=== PATIENT | female | born 2000 | race Caucasian/White ===

== ENCOUNTER 2025-04-07 11:32 | Emergency (ER) | payer OTHER, SELFPAY ==
[2025-04-07 11:38] VITALS: BP 112/74
--- NOTE | 2025-04-07 11:59 | ED.MUSCINJ ---
HPI-Injury
General
Chief Complaint: Musculo-Skeletal Complaint
Source: patient
Exam Limitations: none
Time Seen by Provider: 04/07/25 11:46
History of Present Illness-Injury
Initial Injury comments:
25-year-old female otherwise healthy presents complaining of left foot pain. She states she is training for marathon and ran 18 miles yesterday. Since then she has had pain and bruising to the lateral aspect of the foot and ankle. It is worse
with certain motions. She denies hearing a snap or pop. No significant injury that she knows of otherwise. No fevers.
Past History
Past History
ED Past Medical History: None
Social History
Tobacco: Non-smoker
Alcohol: None
Drug: None
Personal: Single
Living: with family
Phy Exam
Physical Exam
Physical Exam:
General: Well-appearing female no acute respiratory distress
Musculoskeletal exam: Left ankle swollen and tender with ecchymosis noted inferior to the distal fibula and over the proximal lateral foot. Her ankle stable to a drawer test she has great function upon resisted eversion and inversion
Vascular: 2 DP pulse left foot
Injury Course
Orders/Labs/Results
Orders:
Orders
04/07/25 11:43
Foot, Left 3 View [CR Foot - Left Min 3 Views] Urgent
Comment:
Reason For Exam: injury
MDM/Problems Addressed
Differential Diagnosis Includes:
Left foot and ankle pain and a runner training for a marathon. Consider stress reaction versus tendinitis versus sprain
X-rays pending
*Pulse Oximetry
SaO2: 100
Oxygen Mode of Delivery: Room air
Patient hypoxic: no
*Critical Care Note
Total Time (30-74mins, 75-104mins- exclusive of procedures): Not Applicable
Update Note
Update Note:
I personally visualized x-rays of the left foot which demonstrate no acute finding. There is a chronic appearing avulsion off the lateral talus. This does not look acute. I suspect underlying tendinitis recommended rest and anti-inflammatories.
Stable for discharge
ED Attending Note
-
Portions of this chart may have been created with voice recognition software.� Occasional wrong word or��sound alike� substitutions may have occurred due to the inherent limitations of voice recognition software.
Discharge Plan
Departure
Patient Disposition: Home (Routine Discharge)
Date of Disposition: 04/07/25
Time of Disposition: 12:56
Patient with high blood pressure during this ER visit?: No
Discharge Problem:
Tendonitis
Instructions: Muscle and Bone Pain (DC)
Prescriptions:
No Action
No Current Medications
0
Referrals:
Jojo Quach MD [Family Provider, Family Practice]
Activity Restrictions/Additional Instructions:
Rest. You may ice. You may take ibuprofen or use topical Voltaren. Return if needed otherwise follow-up with your doctor
Interventions
Interventions:
*General Assessment Last Done: 04/07/25 11:38
*Neglect/Abuse Screening Last Done: 04/07/25 11:38
*ED COVID-19 Vaccine History Last Done: 04/07/25 12:31
*ED Influenza Vaccine History Last Done: 04/07/25 12:31
[facility] Risk Assessment Tool Last Done: 04/07/25 12:30
*Risk Screen - Suicide (C-SSRS) Last Done: 04/07/25 12:31
ED-Musculoskeletal Assessment Last Done: 04/07/25 12:31
Discharge Date and Time
Print Language: CROATIAN
[2025-04-07 13:15] VITALS: BP 114/71
== END 2025-04-07 13:19 | disposition home or self-care (01) ==
LOC: EMR 11:32
PROVIDERS: EMERGENCY PHYSICIAN Emergency Medicine; FAMILY PHYSICIAN Family Medicine
DX: M77.9 Enthesopathy, unspecified (principal); S90.02XA Contusion of left ankle, initial encounter; X58.XXXA Exposure to other specified factors, initial encounter; Y93.02 Activity, running
CPT/HCPCS: 99283; 73630